=== PATIENT | male | born 2005 | race Caucasian/White ===

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

== ENCOUNTER 2023-09-01 16:51 | Emergency (ER) | payer BC, SELFPAY ==
[2023-09-01 16:59] VITALS: BP 128/85; PULSE 63; RESP 16; TEMP 37.2; O2SAT 100
--- NOTE | 2023-09-01 17:19 | ED.GENADULT ---
HPI - General Adult General Chief complaint: Skin/Abscess/Foreign Body Stated complaint: Rash Time Seen by Provider: 09/01/23 17:19 Source: patient, RN notes reviewed and old records reviewed Mode of arrival: ambulatory Limitations: no limitations History of Present Illness HPI narrative: 18-year-old male presents to [facility] with complaint rash that started on Monday. Patient states rash is pruritic. Patient denies any changes in products. Patient denies swelling lips or tongue, shortness of breath, difficulty breathing. MD complaint: rash Onset (ago): day(s) (2) Related Data Allergies Allergy/AdvReac Type Severity Reaction Status Date / Time Opioids - Morphine Analogues Allergy Mild Hives Verified 09/01/23 17:04 Review of Systems Constitutional: Constitutional: Reports no additional constitutional complaints, Denies body ache(s), Denies chills, Denies fatigue, Denies fever(s) and Denies headache(s) Eyes: Eyes: Reports no additional eye complaints and Denies blurry vision ENT: Reports system reviewed and no additional complaints, except as documented, Denies vertigo, Denies dizziness, Denies ear discharge, Denies otalgia, Denies facial pain, Denies headache(s), Denies nasal congestion, Denies nasal discharge, Denies sinus pain, Denies sinus pressure and Denies sore throat Cardiovascular: Cardiovascular: Reports no additional cardiovascular complaints, Denies chest pain, Denies chest pain at rest, Denies rapid heart rate and Denies dyspnea Respiratory: Respiratory: Reports no additional respiratory complaints, Denies chest congestion, Denies cough, Denies pain on inspiration, Denies pain with cough and Denies dyspnea Gastrointestinal: Gastrointestinal: Denies abdominal pain, Denies diarrhea, Denies nausea and Denies vomiting Integumentary/Breasts: Skin/Breast: Reports rash Neurologic: Reports system reviewed and no additional complaints, except as documented, Denies vertigo, Denies dizziness and Denies headache(s) Endocrine: Endocrine: Denies fatigue PMFSH Past Medical History Medical History Seasonal allergies Surgical History Surgical History S/P laparoscopic appendectomy Family History Family History Other Hypertension Social History Social History Smoking status: Never smoker Alcohol intake: never Substance use: current Substance use type: does not use Living arrangements: with family Occupation/Education: student Gender identity (if verbalized by the patient): Male Spiritual care concerns: No Comments At the time of my signature, I reviewed and agree with the nursing past medical, surgical, social, and family history. There is no relevant family history pertinent to the patient complaint. Exam Const: General: cooperative, healthy appearing, no acute distress and well nourished Nutritional Appearance: well nourished Orientation/consciousness: patient oriented x3 Limitations: no limitations HENMT: Head: normal to inspection and normocephalic Ears: external ears normal, TM's normal bilaterally, mastoids normal and Abnormal EAC present Face/Nose/Sinus: normal facial exam Face and sinus: normal facial exam Mouth: Yes Normal oral and palatal mucosa present, Yes oropharynx normal and Yes moist mucous membranes Throat: tonsils normal, uvula midline and no uvular edema Eyes: General: appearance normal, both eyes and all related structures Sclera: sclerae normal Pupils: Equal, round and reactive pupils present Resp: Effort & Inspection: normal respiratory effort, able to speak in complete sentences, no audible wheezes, no cough, no respiratory distress and no retractions Auscultation: clear to auscultation bilaterally, no crackles, no rales, no rhonchi and no w
== END 2023-09-01 17:29 | disposition home or self-care (01) ==
PROVIDERS: Emergency Provider Registered Nurse
DX: L23.9 Allergic contact dermatitis, unspecified cause (principal)
CPT/HCPCS: 99213; G0463

== ENCOUNTER 2024-02-12 10:26 | Emergency (ER) | payer BC, SELFPAY ==
[2024-02-12 10:44] VITALS: BP 118/77; PULSE 70; RESP 20; TEMP 36.9; O2SAT 100
--- NOTE | 2024-02-12 11:17 | ED.GENADULT ---
HPI - General Adult General Chief complaint: Upper Respiratory Infection Stated complaint: throat Source: patient Mode of arrival: ambulatory Limitations: no limitations History of Present Illness HPI narrative: Patient presents for evaluation of sore throat for last 4 days. Denies any fever, chills, nausea, vomiting, diarrhea, otalgia. He does have a mild cough. He is not taking any medications for his symptoms. He does not smoke or vape. Related Data Allergies Allergy/AdvReac Type Severity Reaction Status Date / Time Opioids - Morphine Analogues Allergy Mild Hives Verified 02/12/24 11:02 Review of Systems Review of Systems: CONSTITUTIONAL: Denies fever, chills, or sweats. EYES: Denies visual changes, redness, or discharge. ENT: Reports sore throat. Denies rhinorrhea, congestion, or otalgia. CARDIOVASCULAR: Denies chest pain, palpitations, or edema. RESPIRATORY: Reports mild cough. Denies SOB. GASTROINTESTINAL: Denies abdominal pain, nausea, vomiting, or diarrhea. GENITOURINARY: Denies dysuria or hematuria. SKIN: Denies rash or itching. MUSCULOSKELETAL: Denies back pain, joint pain, or myalgia. NEUROLOGIC: Denies headache, numbness, dizziness, or weakness. PSYCHIATRIC: Denies anxiety or depression. [facility] Past Medical History Medical History Seasonal allergies Surgical History Surgical History (Reviewed 02/12/24 @ 11:18 [facility] S/P laparoscopic appendectomy Family History Family History (Reviewed 02/12/24 @ 11:18 by [facility] Other Hypertension Social History Social History (Reviewed 02/12/24 @ 11:18 by [facility] Smoking status: Never smoker Alcohol intake: never Substance use: current Substance use type: does not use Living arrangements: with family Occupation/Education: student Gender identity (if verbalized by the patient): Male Spiritual care concerns: No Exam Narrative: GENERAL: Well-appearing, well-nourished, and in no acute distress. HEAD: Normocephalic, atraumatic. EYES: PERRLA and EOMI. ENT: Nares clear, no rhinorrhea or epistaxis. Mucous membranes moist. There is mild posterior pharyngeal erythema with white exudate. Uvula is midline. Bilateral TMs pearly ye nonbulging NECK: Supple. No adenopathy or masses. No carotid bruits or JVD CHEST: Clear to auscultation. No respiratory distress. No wheezes rales or rhonchi HEART: Regular rate and rhythm. No murmur heard. Normal peripheral pulses. ABDOMEN: Soft, nontender, nondistended, normal active bowel sounds. EXTREMITIES: Normal range of motion. No edema. SKIN: Warm, dry, no rash. NEURO: No focal deficits. Alert and oriented x3. PSYCH: Normal mood and affect. Course Course Emergency Course: This is a 18-year-old male who presented for evaluation of sore throat. Strep positive. Will treat with amoxicillin. Increase hydration. [id number] agents for symptom management. Follow up with primary provider. Go the ER for worsening symptoms. Patient in agreement with plan of care. Level of Care: Express Care Visit Vital Signs Vital signs: Vital Signs Temperature 36.9 C 02/12/24 10:44 Pulse Rate 70 02/12/24 10:44 Respiratory Rate 20 02/12/24 10:44 Blood Pressure 118/77 02/12/24 10:44 Pulse Oximetry 100 02/12/24 10:44 Oxygen Delivery Room Air 02/12/24 10:44 Temperature 36.9 C 02/12/24 10:44 Pulse Rate 70 02/12/24 10:44 Respiratory Rate 20 02/12/24 10:44 Blood Pressure 118/77 02/12/24 10:44 Pulse Oximetry 100 02/12/24 10:44 Oxygen Delivery Room Air 02/12/24 10:44 Medical Decision Making Vital Signs Vital Signs: Vital Signs Temperature 36.9 C 02/12/24 10:44 Pulse Rate 70 02/12/24 10:44 Respiratory Rate 20 02/12/24 10:44 Blood Pressure 118/77 02/12/24 10:44 Pulse Oximetry 100 02/12/24 10:44 Oxygen Delivery
== END 2024-02-12 11:20 | disposition home or self-care (01) ==
PROVIDERS: Emergency Provider Nurse Practitioner
DX: J02.0 Streptococcal pharyngitis (principal)
CPT/HCPCS: 87880; 99213; G0463